=== PATIENT | male | born 1990 | race Caucasian/White ===

== ENCOUNTER 2021-01-07 06:39 | Observation (INO) | payer OTHER ==
[~2021-01-07] VITALS: Ht 190.5 cm; Wt 95.5 kg
--- NOTE | 2021-01-07 06:55 | PHYS DOC ---
Adult General [facility] HPI Patient is a 30 year old male who presents with suicidal thoughts. Patient called EMS today. He had thoughts of shooting himself with a gun. He was recently discharged from [facility] in [place] where he had been inpatient. He has an extensive psychiatric history and feels that his medications are not working. He is tearful and complaining of anxiety that is rated to be severe on arrival to the ER. Denies hallucinations. He incidentally just underwent nasal surgery for correction of nasal fracture. This was completed 2 days earlier. He reports that he has healing well and has no complaints related to recent surgery. Review of Systems Review of Systems Constitutional: Denies fever or chills Eyes: Denies change in visual acuity, redness, or eye pain HENT: Denies nasal congestion or sore throat, healing from recent nasal surgery Respiratory: Denies cough or shortness of breath Cardiovascular: No additional information not addressed in HPI GI: Denies abdominal pain, nausea : Denies dysuria or hematuria Musculoskeletal: Denies back pain or joint pain Integument: Denies rash or skin lesions Neurologic: Denies headache Endocrine: Denies polyuria or polydipsia Psychiatric: as documented in HPI All other systems were reviewed and found to be within normal limits, except as documented in this note. Current Medications Current Medications Current Medications Medications (Trade) Dose Ordered Sig/Ibeth Start Time Stop Time Status Last Admin Dose Admin Lorazepam (Ativan Inj) 1.5 mg 1X ONCE 01/07/21 07:00 01/07/21 07:05 DC 01/07/21 07:20 1.5 MG Nicotine Polacrilex (Nicorette Gum) 1 each PRN Q1HR PRN 01/07/21 10:30 01/07/21 11:44 1 EACH Allergies Allergies Allergies Coded Allergies Type Severity Reaction Last Updated Verified paroxetine Allergy Intermediate 01/07/21 Yes Physical Exam Physical Exam Constitutional: Well developed, well nourished, no acute distress, non-toxic appearance. HENT: Normocephalic, atraumatic, bilateral external ears normal, oropharynx moist, no oral exudates, nose normal, some residual ecchymosis about right orbit secondary to recent nasal surgery Eyes: PERRLA, EOMI, conjunctiva normal, no discharge. Neck: Normal range of motion Cardiovascular:Heart rate regular rhythm, no murmur Lungs & Thorax: Bilateral breath sounds are normal Abdomen: Bowel sounds normal, soft, NTTP Skin: Warm, dry, no erythema, no rash. Back: No tenderness, no CVA tenderness. Extremities: No tenderness, no cyanosis, no clubbing, ROM intact, no edema. Neurologic: Alert and oriented X 3 Psychologic: Anxious, tearful, normal type of speech, good eye contact, has good insight and foresight into his complaint and condition. He is agreeable to plan of care. Answering questions appropriately. Current Patient Data Vital Signs Vital Signs Date Time Temp Pulse Resp B/P (MAP) Pulse Ox O2 Delivery O2 Flow Rate FiO2 01/07/21 15:53 65 125/60 (81) 98 Room Air 01/07/21 06:40 98.6 22 98.6 Lab Values Laboratory Tests Test 01/07/21 07:20 01/07/21 07:25 01/07/21 07:53 SARS-CoV-2 Antigen (Rapid) Negative (NEGATIVE) White Blood Count 7.5 x10^3/uL (4.0-11.0) Red Blood Count 4.79 x10^6/uL (4.30-5.70) Hemoglobin 14.4 g/dL (13.0-17.5) Hematocrit 43.1 % (39.0-53.0) Mean Corpuscular Volume 90 fL (79-100) Mean Corpuscular Hemoglobin 30 pg (25-35) Mean Corpuscular Hemoglobin Concent 34 g/dL (31-37) Red Cell Distribution Width 14.8 % (11.5-14.5) H Platelet Count 196 x10^3/uL (140-400) Neutrophils (%) (Auto) 63 % (31-73) Lymphocytes (%) (Auto) 26 % (24-48) Monocytes (%) (Auto) 7 % (0-9) Eosinophils (%) (Auto) 3 % (0-3) Basophils (%) (Auto) 1 % (0-3) Neutrophils # (Auto) 4.7 x10^3/uL (1.8-7.7) Lymphocytes # (Auto) 1.9 x10^3/uL (1.0-4.8) Monocytes # (Auto) 0.5 x10^3/uL (0.0-1.1) Eosinophils # (Auto) 0.3 x10^3/uL (0.0-0.7) Basophils # (Auto) 0.1 x10^3/uL (0.0-0.2) Sodium Level 140 mmol/L (136-145) Potassium Level 4.0 mmol/L (3.5-5.1) Chloride Level 105 mmol/L (98-107) Carbon Dioxide Level 29 mmol/L (21-32) Anion Gap 6 (6-14) Blood Urea Nitrogen 22 mg/dL (8-26) Creatinine 0.8 mg/dL (0.7-1.3) Estimated GFR (Cockcroft-Gault) 112.0 Glucose Level 72 mg/dL (70-99) Calcium Level 8.8 mg/dL (8.5-10.1) Thyroid Stimulating Hormone (TSH) 0.812 uIU/mL (0.358-3.74) Salicylates Level 3.0 mg/dL (2.8-20.0) Salicylate Last Dose Date Unknown Salicylate Last Dose Time Unknown Acetaminophen Level < 2 mcg/ml (10-30) L Acetaminophen Last Dose Date Unknown Acetaminophen Last Dose Time Unknown Ethyl Alcohol Level < 10 mg/dL (0-10) Urine Opiates Screen Neg (NEG) Urine Methadone Screen Neg (NEG) Urine Barbiturates Neg (NEG) Urine Phencyclidine Screen Neg (NEG) Urine Amphetamine/Methamphetamine Neg (NEG) Urine Benzodiazepines Screen Neg (NEG) Urine Cocaine Screen Neg (NEG) Urine Cannabinoids Screen Neg (NEG) Urine Ethyl Alcohol Neg (NEG) Laboratory Tests 01/07/21 07:25 Laboratory Tests 01/07/21 07:25 EKG EKG [] Radiology/Procedures Radiology/Procedures [] Course & Med Decision Making Course & Med Decision Making Pertinent Labs and Imaging studies reviewed. (See chart for details) Mr. Steward is evaluated on arrival to his room. He is in no acute physical distress but is emotionally very upset and anxious and tearful. Today, we will check labs and give intramuscular Ativan for symptom relief. He does request admission to any psychiatric facility that will accept him. He has previously been admitted to most of the local facilities. He is specifically requesting [facility] today. 09:00: Sleeping. Normal vitals. 1:1 observation continued. Psych evaluation pending. 12:05: calm, remains cooperative. Eating lunch. Placement pending. Requesting nicotine gum and states the patches cause his skin to break out. Gum is ordered. 13:20: Patient is now acutely agitated. He is upset that he is remains in the emergency department with no placement. He has been using his phone to contact [facility] directly but they were unable to immediately arrange a bed for him. He becomes upset now stating that he is no longer suicidal and that he feels it is his legal right to refuse care and walked out of the emergency department. He threatens physical response if he is not allowed to leave. He is demanding his clothes and belongings. Security arrives at the bedside. Patient is able to use his phone to contact both his senior vice president and chief information officer and also his power of consumer attorney but both recommend that he come down and remain in the emergency department to complete care. Patient does calm down. We requested repeat mental health screening to reevaluate his suicidality and or need for admission. At this time, he states that he is not suicidal 15:00: currently calm, cooperative. Behavioral health at bedside. 16:15: Continues to be calm and cooperative. Repeat mental health assessment was completed and patient does still require admission. He is voluntary at this time but was informed that involuntary methods would be pursued if he attempts to leave. Cannot be placed until Covid PCR test is completed which will not complete until tomorrow. Patient is admitted for observation until that time. I spoke to Dr. Palomino who will primarily admit. Shawna Disclaimer Shawna Disclaimer This electronic medical record was generated, in whole or in part, using a voice recognition dictation system. Departure Departure Disposition: 09 ADMITTED INPATIENT Condition: STABLE TONY DUNNE DO Jan 07, 2021 06:55
[2021-01-07 07:44] LABS: BASO # 0.1 x10^3/uL (0.0-0.2); BASO % 1 % (0-3); EOS # 0.3 x10^3/uL (0.0-0.7); EOS % 3 % (0-3); HEMATOCRIT 43.1 % (39.0-53.0); HEMOGLOBIN 14.4 g/dL (13.0-17.5); LYMPH # 1.9 x10^3/uL (1.0-4.8); LYMPH % 26 % (24-48); MEAN CORPUSCULAR HEMOGLOBIN 30 pg (25-35); MEAN CORPUSCULAR HGB CONC 34 g/dL (31-37); MEAN CORPUSCULAR VOLUME 90 fL (79-100); MONO # 0.5 x10^3/uL (0.0-1.1); MONO % 7 % (0-9); NEUT # 4.7 x10^3/uL (1.8-7.7); NEUT % 63 % (31-73); PLATELET COUNT 196 x10^3/uL (140-400); RED BLOOD COUNT 4.79 x10^6/uL (4.30-5.70); RED CELL DISTRIBUTION WIDTH 14.8 % (11.5-14.5); WHITE BLOOD COUNT 7.5 x10^3/uL (4.0-11.0)
[2021-01-07 07:49] LABS: CALCIUM 8.8 mg/dL (8.5-10.1); CREATININE 0.8 mg/dL (0.7-1.3)
[2021-01-07 07:54] LABS: ACETAMIN < 2 mcg/ml (10-30)
[2021-01-07 07:55] LABS: ETHANOL < 10 mg/dL (0-10)
[2021-01-07] MEDS ORDERED: NICOTINE POLACRILEX 2MG GUM PACKAGE of 12. BC PRN (10:30)
[2021-01-07 10:34] LABS: AMPHETAMINE/METHAMPHETAMINE NEG (NEG); BARBITURATES NEG (NEG); BENZODIAZEPINES NEG (NEG); CANNABINOIDS NEG (NEG); COCAINE NEG (NEG); METHADONE NEG (NEG); OPIATES NEG (NEG); PHENCYCLIDINE NEG (NEG)
[2021-01-07] MEDS ORDERED: NICOTINE 21MG PATCH. TD PRN (17:45)
--- NOTE | 2021-01-07 19:04 | SSS ---
ADMIT DATE: 01/07/2021 CHIEF COMPLAINT: Suicidal ideation. HISTORY OF PRESENT ILLNESS: The patient is a pleasant 30-year-old male who presented to the ER with thoughts of shooting himself. Apparently, he does have a shotgun. He tells me that he got out of [facility] in July. He has been in [facility] for 10 years. States while he was in [facility], he was started on some medicines to help with his transgender transition, but since he has been out, he has not received the meds and so now he is developing thoughts of suicidal ideation. He has also complained of being homeless. States he got off methamphetamine. He is now vaping nicotine instead. I discussed the case with ER physician. We need to admit the patient to rule out COVID-19 as the psychiatric facility will not take him until we rule out COVID-19. The COVID-19 PCR will not be ready until tomorrow. PAST MEDICAL HISTORY: Bipolar, gender dysphoria; transgender transitioning, but he states that is on hold because he can get the right meds; previous methamphetamine abuse, tobacco abuse, anxiety, depression. ALLERGIES: PAROXETINE. FAMILY HISTORY: Diabetes. SOCIAL HISTORY: He states he has been in [facility] for 10 years, got out in July. He is currently homeless. MEDICATIONS: Reviewed, please refer to the MRAD. REVIEW OF SYSTEMS: GENERAL: No history of weight change, weakness or fevers. SKIN: No bruising, hair changes or rashes. EYES: No blurred, double or loss of vision. NOSE AND THROAT: No history of nosebleeds, hoarseness or sore throat. HEART: No history of palpitations, chest pain or shortness of breath on exertion. LUNGS: Denies cough, hemoptysis, wheezing or shortness of breath. GASTROINTESTINAL: Denies changes in appetite, nausea, vomiting, diarrhea or constipation. GENITOURINARY: No history of frequency, urgency, hesitancy or nocturia. NEUROLOGIC: Denies history of numbness, tingling, tremor or weakness. PSYCHIATRIC: No history of panic, anxiety or depression. ENDOCRINE: No history of heat or cold intolerance, polyuria or polydipsia. EXTREMITIES: Denies muscle weakness, joint pain, pain on walking or stiffness. . PHYSICAL EXAMINATION: VITALS: Within normal limits and are stable. GENERAL: He is agitated, but somewhat pleasant. HEENT: Normal cephalic atraumatic, external auditory canals are patent. EYES: Extraocular muscles are intact, pupils are equally round and reactive to light and accommodation. MUSCULOSKELETAL: Well developed, well nourished, good range of motion. ENDOCRINE: No thyromegaly was palpated. LYMPHATICS: No cervical chain or axillary nodes were noted. HEMATOPOIETIC: No bruising. NECK: Supple, no JVD, no thyromegaly was noted. LUNGS: Clear to auscultation in all lung montilla without rhonchi or wheezing. HEART: RRR, S1, S2 present. Peripheral pulses intact, no obvious murmurs were noted. ABDOMEN: Soft, nontender. Positive bowel sounds no organomegaly, normal bowel sounds. EXTREMITIES: Without any cyanosis, clubbing, or edema. Pedal pulses intact, Homans sign is negative. NEUROLOGIC: He is agitated. PSYCHIATRIC: He is anxious. SKIN: No ulcerations or rashes, good skin turgor, no jaundice. VASCULAR: Good capillary refill, neurovascular bundle appears to be intact. LABORATORY DATA: White count 7, hemoglobin 14, platelets 196. Electrolytes are normal. Drug screen negative. The rapid COVID test is negative. PCR is pending. ASSESSMENT AND PLAN: Suicidal ideation in a middle-aged male with the above noted comorbidities. Clinically, he is cleared to go to the inpatient psych unit, but they will not take him until we get a PCR for the COVID test. For now, we will resume home meds. Encourage p.o. intake. We have him on one to one observation. Nicotine patch. DVT prophylaxis. Full code. NIRMALA DR: Nalini TID: [id number]
[2021-01-07] MEDS: FINASTERIDE 5 MG TABLET. PO SCH (20:54)
--- NOTE | 2021-01-07 21:09 | NUR ---
updated pt. vitals for inpt. Med/Mon Q4
[2021-01-08] MEDS ORDERED: HYDR50TA PO (10:00)
[2021-01-08] MEDS ORDERED: LITH300T3 PO (10:00)
[2021-01-08] MEDS ORDERED: OXYM30SP25 NAS (10:01)
--- NOTE | 2021-01-08 11:59 | PDOC ---
[employer] PROGRESS NOTE Date of Service DOS: DATE: 01/08/21 TIME: 11:58 Chief Complaint Chief Complaint Suicidal ideation History of Present Illness History of Present Illness 06/10/2020 Patient seen and examined Covid test is negative x2 We will discharge to inpatient psych if better can be arranged Vitals/I&O Vitals/I&O: Vital Signs Date Time Temp Pulse Resp B/P (MAP) Pulse Ox O2 Delivery O2 Flow Rate FiO2 01/08/21 10:50 98.5 82 19 134/61 (85) 98 Room Air 98.5 Physical Exam General: Alert, Oriented X3, Other (States he is still having a lot of depression issues) Heart: No murmurs Lungs: Clear Abdomen: Normal bowel sounds Extremities: No clubbing Skin: No rashes Assessment and Plan Assessmemt and Plan Suicidal ideation Plan Transfer to inpatient psych Comment Review of Relevant I have reviewed the following items john (where applicable) has been applied. Medications: Current Medications Medications (Trade) Dose Ordered Sig/Ibeth Route PRN Reason Start Time Stop Time Status Last Admin Dose Admin Nicotine (Nicoderm Cq 21mg) 1 patch PRN DAILY PRN TD SMOKING CESSATION 01/07/21 17:45 01/07/21 18:44 Justifications for Admission Other Justification JERMAN PETERSON III DO Jan 08, 2021 11:59
[2021-01-08] MEDS ORDERED: FINA5TAB4 PO (12:00)
--- NOTE | 2021-01-08 12:01 | SNU/HH DC ---
DISCHARGE ORDERS DISCHARGE INFORMATION: CONDITION ON DISCHARGE: Stable CODE STATUS: Code Status: Full [facility]FP: SNF STAY <30 DAYS: No HOSPICE: HOSPICE: No HOSPICE EVAL & TREAT: No LTAC: ADMIT TO LTAC: No POST DISCHARGE ORDERS: ACTIVITY ORDERS: Activity as tolerated WEIGHT BEARING STATUS: Full weight bearing DIET AFTER DISCHARGE: Regular OTHER ORDERS: Transfer to inpatient psychiatric care DISCHARGE MEDICATIONS: Home Meds Reported Medications Oxymetazoline Hcl (AFRIN) 30 Ml Marcus, 2 SPRAY VIJAYA BID 01/08/21 [place] Carbonate (LITHIUM CARBONATE) 300 Mg Tablet, 1 TAB PO BID 01/08/21 Hydroxyzine Hcl (HYDROXYZINE HCL) 50 Mg Tablet, 1 TAB PO BID 01/08/21 JERMAN PETERSON III, DO Jan 08, 2021 12:01
[2021-01-08] MEDS ORDERED: hydrOXYzine 25 MG TABLET PO SCH (13:00)
[2021-01-08] MEDS ORDERED: OXYMETAZOLINE 0.05% NASAL SPRAY 30ML BOTTLE. NS SCH (13:00)
[2021-01-08] MEDS ORDERED: LITHIUM CARBONATE ER 300 MG TABLET.ER PO SCH (13:00)
[2021-01-08] MEDS: FINASTERIDE 5 MG TABLET. PO SCH (13:18)
[2021-01-08 14:39] VITALS: BP 113/65
[2021-01-08 14:47] LABS: LI < 0.2 mmol/L (0.6-1.2)
--- NOTE | 2021-01-09 03:35 | EKG ---
[facility] [address] [place] [address] Test Date: 2021-01-08 Test Time: 12:59:56 Pat Name: MONIE CARL Department: Room: ED HOLD 23 Gender: M Dog Boarder: : 1990 Requested By: TONY DUNNE Order Number: [id number] Reading MD: Measurements Intervals [place] Rate: 59 P: 31 DE: 134 QRS: 60 QRSD: 100 T: 20 QT: 384 QTc: 384 Interpretive Statements SINUS RHYTHM QRS(T) CONTOUR ABNORMALITY CONSIDER ANTEROLATERAL MYOCARDIAL DAMAGE POSSIBLY ABNORMAL ECG RI6.01 No previous ECG available for comparison
== END 2021-01-07 19:30 ==
LOC: ER 06:39 → ED HOLD 15:10
PROVIDERS: ADMIT Internal Medicine; ATTEND Internal Medicine
DX: R45.851 Suicidal ideations (principal); Z20.822 Contact with and (suspected) exposure to COVID-19; F64.9 Gender identity disorder, unspecified; F31.9 Bipolar disorder, unspecified; F41.9 Anxiety disorder, unspecified; Z59.0 Homelessness; Z83.3 Family history of diabetes mellitus; Z87.891 Personal history of nicotine dependence
CPT/HCPCS: 36415; 80048; 80307; 80329; 84443; 85025; 87426; 96372; 99284; G0378; G0480; J2060; U0003; U0005; 80178; 93005; G0379